=== PATIENT | female | born 1985 | race African-American/Black ===

== ENCOUNTER 2024-07-03 07:15 | Day surgery (SDC) | payer OTHER ==
[2024-07-03 07:45] VITALS: BMI 31.5
[2024-07-03] MEDS ORDERED: hydrALAZINE 20 MG/ML VIAL SLOW IVP PRN (08:56)
== END 2024-07-03 09:30 | disposition home or self-care (01) ==
LOC: CSHLD/OP 07:15
PROVIDERS: ATTEND Student in an Organized Health Care Education/Training Program
DX: O34.30 Maternal care for cervical incompetence, unspecified trimester (principal)
CPT/HCPCS: 59899

== ENCOUNTER 2024-07-23 05:30 | Inpatient (IN) | payer OTHER ==
[2024-07-23 07:14] VITALS: BMI 34.2
[2024-07-23] MEDS ORDERED: Bupivacaine 0.25% HCL 30 ML VIAL ONE (08:00)
[2024-07-23] MEDS ORDERED: Ondansetron PF 4 MG/2 ML Vial IVP PRN ×3 (08:04→17:41)
[2024-07-23] MEDS ORDERED: Lidocaine 1% (PF) 30 ML VIAL SC PRN (08:04)
[2024-07-23] MEDS ORDERED: Methylergonovine 0.2 MG/ML VIAL IM PRN (08:04)
[2024-07-23] MEDS ORDERED: hydrALAZINE 20 MG/ML VIAL SLOW IVP PRN ×2 (08:04→17:41)
[2024-07-23] MEDS ORDERED: Carboprost 250 MCG/ML AMP IM PRN (08:04)
[2024-07-23] MEDS ORDERED: Diphenoxylate HCl/Atropine Tablet PO PRN (08:04)
[2024-07-23] MEDS ORDERED: Acetaminophen 500 MG TAB PO PRN (08:04)
[2024-07-23] MEDS ORDERED: HYDROcodone/Acetaminophen 5/325 mg Tablet PO PRN ×3 (08:04→17:41)
[2024-07-23] MEDS ORDERED: Promethazine HCl 25 MG/ML VIAL IM PRN ×3 (08:04→17:41)
[2024-07-23] MEDS ORDERED: Misoprostol 200 MCG TAB PR PRN (08:04)
[2024-07-23] MEDS ORDERED: fentaNYL 50 mcg/mL 1 mL Vial SLOW IVP PRN (08:04)
[2024-07-23 08:42] LABS: Hematocrit 32.1 % (34.9-44.5); Hemoglobin 10.7 g/dL (12.0-15.5); Mean Corpuscular HGB CONC 33.3 g/dL (32.0-36.0); Mean Corpuscular Hemoglobin 21.9 pg (27.0-33.0); Mean Corpuscular Volume 65.8 fL (81.6-98.3); Platelet Count 244 10x3/uL (150-450); RBC Distribution Width 16.7 % (11.5-14.5); Red Blood Cell (RBC) Count 4.88 10x6/uL (3.90-5.03)
[2024-07-23] MEDS: Lactated Ringer's 1,000 ML IV SCH (08:44)
[2024-07-23] MEDS: Oxytocin 30 units/NS 500 ML 500 ML IV SCH ×2 (08:44→16:09)
[2024-07-23 08:58] LABS: HBsAg Index 0.11 S/CO (0-0.99); Hep B Surf Ag - L&D Non-Reactive S/CO (NonReactive)
[2024-07-23 09:00] LABS: Syphilis Antibody Nonreactive (Nonreactive); Syphilis Antibody Index 0.18 S/CO (<1.00 Non-Reactive)
[2024-07-23] MEDS: fentaNYL/Ropivacaine Epidural 100 ML ONE (10:16)
[2024-07-23] MEDS ORDERED: diphenhydrAMINE 50 MG/ML VIAL IVP PRN (10:22)
[2024-07-23] MEDS ORDERED: Naloxone HCl 0.4 mg/ml Vial IVP PRN ×2 (10:22)
[2024-07-23] MEDS ORDERED: ePHEDrine Sulfate 50 MG/10 ML VIAL SLOW IVP PRN (10:22)
[2024-07-23] MEDS ORDERED: Acetaminophen 325 MG TAB PO PRN (10:22)
[2024-07-23] MEDS ORDERED: Lactated Ringer's 500 ML IV PRN (10:22)
[2024-07-23] MEDS ORDERED: Moisturizing Cream (Eucerin) 113 GM JAR TOP PRN (10:22)
[2024-07-23] MEDS ORDERED: fentaNYL 2 mcg/Ropivacaine 0.2% Epidural 100 ML CADD EPIDURAL SCH (10:30)
[2024-07-23] MEDS: Ibuprofen 800 MG TAB PO PRN (16:09)
[2024-07-23] MEDS ORDERED: Milk Of Magnesia 30 ML UDCUP PO PRN (17:41)
[2024-07-23] MEDS ORDERED: Benzocaine-Menthol 82.5 ML CAN TOP PRN (17:41)
[2024-07-23] MEDS ORDERED: Bisacodyl 10 MG SUPP PR PRN (17:41)
[2024-07-23] MEDS ORDERED: Preparation H Ointment 28 GM TUBE PR PRN (17:41)
[2024-07-23] MEDS ORDERED: diphenhydrAMINE 25 MG CAP PO PRN (17:41)
[2024-07-23] MEDS ORDERED: Lanolin Ointment 7 GM TUBE TOP PRN (17:41)
[2024-07-23] MEDS ORDERED: Boostrix 0.5 ML (Tdap) VIAL (>/=7 yrs of age) IM ONE (17:41)
[2024-07-23] MEDS: Ferrous Sulfate 325 MG TAB PO SCH (19:04)
[2024-07-24] MEDS: Docusate 100 MG CAP PO SCH (00:17)
[2024-07-24] MEDS: Ibuprofen 800 MG TAB PO SCH ×2 (00:20→07:41)
[2024-07-24] MEDS: Ferrous Sulfate 325 MG TAB PO SCH (07:22)
[2024-07-24] MEDS: Prenatal Vitamin 1 TAB PO SCH (07:40)
[2024-07-24] MEDS ORDERED: Ondansetron PF 4 MG/2 ML Vial IVP PRN (10:29)
[2024-07-25 07:28] VITALS: TEMP 98.6
[2024-07-25 17:47] VITALS: BP 112/64
== END 2024-07-25 17:25 | disposition home or self-care (01) | DRG 807 ==
LOC: CSHLD 06:00 → CSHPP 16:50
PROVIDERS: ADMIT Student in an Organized Health Care Education/Training Program; ATTEND Student in an Organized Health Care Education/Training Program
PROC: 10E0XZZ Delivery of Products of Conception, External Approach (ICD-10-PCS; principal; 2024-07-23)
DX: O99.02 Anemia complicating childbirth (principal); Z37.0 Single live birth; O76 Abnormality in fetal heart rate and rhythm complicating labor and delivery; Z3A.39 39 weeks gestation of pregnancy; Z79.82 Long term (current) use of aspirin; Z91.014 Allergy to mammalian meats; D50.9 Iron deficiency anemia, unspecified
CPT/HCPCS: 36415; 51702; 85027; 86780; 86850; 86900; 86901; 87340; J0665; J2590; J7120